=== PATIENT | female | born 1940 | race Caucasian/White ===

== ENCOUNTER 2017-01-03 01:51 | Emergency (ER) | payer MEDICARE ==
[2017-01-03] MEDS ORDERED: Azithromycin 250 MG TAB ONE (02:30)
--- NOTE | 2017-01-03 06:55 | RAD ---
CHEST 2 VIEWS: Date: 01/03/17 Comparison is made with a 07/22/15 study. The heart is upper normal in size. An AICD is in place. There are no congestive changes or pleural e ffusions. Comparison with prior chest films dating back to 2011 was made. There are little questionable patchy densities in the lungs to the right of the right heart border. On the lateral view, there is some q uestionable increased density anteriorly raising the question of some right middle lobe infiltrative findings. The changes are not definite, but given the patient's symptoms, it may be worth treating her and then repeating a chest x-ray following treatment. After that, if findings are still present, a CT might be considered to better see this area of the chest. The lungs are otherwise clear. Dorsa l kyphosis is present with degenerative change in the thoracic spine. IMPRESSION: Question of patchy right middle lobe densities. Treatment and repeat chest x-ray suggested. CODE T. POS: HOME
== END 2017-01-03 02:46 | disposition home or self-care (01) ==
LOC: BURERS 01:51
DX: B34.9 Viral infection, unspecified (principal); E03.9 Hypothyroidism, unspecified; I48.91 Unspecified atrial fibrillation; I25.10 Atherosclerotic heart disease of native coronary artery without angina pectoris; Z86.73 Personal history of transient ischemic attack (TIA), and cerebral infarction without residual deficits
CPT/HCPCS: 71020; 93005

== ENCOUNTER 2018-04-12 05:37 | Emergency (ER) | payer MEDICARE ==
--- NOTE | 2018-04-12 09:31 | CT ---
PRELIMINARY REPORT/[facility]/EMERGENCY AFTER HOURS PROCEDURE: EXAM: CT Chest Without Intravenous Contrast EXAM DATE/TIME: 04/12/2018 6:14 AM CLINICAL HISTORY: 77 years old, female; Injury or trauma; Fall; Initial encounter; Blunt trauma (contusions or hematoma s); Injury date: 04-10-18; Injury details: Fell on rt. Side ribs; Patient HX: Fell on rt. Side ribs/radha n TECHNIQUE: Axial computed tomography images of the chest without intravenous contrast. All CT scans at this [facility] use at least one of these dose optimization techniques: automated exposure control; Ma and/or kV adjustment per patient size (includes targeted exams where dose is matched to clinical indication); or iterative reconstruction. Coronal and sagittal reformatted images were created and reviewed. COMPARISON: No relevant prior studies available. FINDINGS: Lungs: Unremarkable. No mass. No consolidation. Pleural space: There is pleural thickening in the right hemithorax. This probably represents post inf lammatory change. There is minimal stranding in the right costophrenic angle. The remainder the right lung is clear. Left lung is clear. No pneumothorax. No significant effusion. Heart: There is moderately heavy calcification of the mitral valve. The heart is otherwise unremarkable. No cardiomegaly. No significant pericardial effusion. Mediastinum: There is a small hiatal hernia. Bones/joints: There is diffuse osteopenia. There is a moderate scoliotic curvature. There is moderate spondylitic changes throughout the spine. There is an old healed fracture of the right clavicle. No acute fractures. No dislocation. Soft tissues: Unremarkable. Vasculature: Unremarkable. No thoracic aortic aneurysm. Lymph nodes: Unremarkable. No enlarged lymph nodes. IMPRESSION: 1. Right-sided pleural thickening, most likely postinflammatory change. 2. Minimal stranding in the right costophrenic angle, most likely atelectasis. 3. No other acute changes in the chest. Thank you for allowing us to participate in the care of your patient. Dictated and Authenticated by: Shelton Tesfaye MD 04/12/2018 7:51 AM Central Time ([place] & [place]) FINAL REPORT CT CHEST WITHOUT CONTRAST: 04/12/2018 TECHNIQUE: A spiral CT of the chest was performed for evaluation of rib pain. Axial slices were acquired and co alexandru and sagittal reconstructions were done. The exam was done without IV contrast. FINDINGS: The patient has marked scoliosis and dorsal kyphosis of the thoracic spine. No vertebral compression s were seen. Regarding the ribs, no gross fractures were imaged. Subtle rib fractures might be miss ed in this patient, due to her osteopenia. On slice 65 of the axial images, there is an equivocal li ne near the distal end of the right 11th rib. If this correlated with point tenderness, then a minim al hairline fracture might be possible, but the finding is certainly not definite. There are areas of pleural thickening throughout much of the right hemithorax. This is more likely p ost inflammatory than acute, given its extensive coverage. Emphysematous changes are seen in the peyman gs, as well as some atelectasis and/or scarring, particularly in the right costophrenic angle. There is no pneumothorax or lobar consolidation on either side. The mediastinum shows no mass, hematoma, or other acute change. There is dense calcification of the mitral valve. No pericardial fluid is seen. Arteriosclerotic change is present in the aorta and in some of the coronary vessels. A small hiatal hernia was noted. The left adrenal gland seems thicker than the right, but a true mass is not measured. There is proba livan a small cortical cyst in the right kidney. Attention is drawn to slice 45 of the axial images. There is a rounded mass-like density in the left breast. This could be a mass, a cyst, or merely asymmetric tissue. As it seems fairly discrete, fu rther workup is in order. An elective mammogram and/or ultrasound is recommended as a followup. IMPRESSION: 1. No major traumatic findings. 2. Equivocal line at the distal end of the right 11th rib. Correlate with clinical exam. 3. Pleural thickening in the right hemithorax, more likely post inflammatory than not. No acute tra umatic findings seen in the thorax today. 4. A 1.5 cm, rounded density in the left breast. Further elective workup needed to rule out mass. 5. Small hiatal hernia. Report in substantial agreement with the preliminary reading by Jaimee. Follow up with Dr. Carty regarding breast findings and 11th rib findings @ [id number] on 04/12/2018. POS: HOME
== END 2018-04-12 08:22 | disposition home or self-care (01) ==
LOC: BURERS 05:37
DX: S20.211A Contusion of right front wall of thorax, initial encounter (principal); E03.9 Hypothyroidism, unspecified; M19.90 Unspecified osteoarthritis, unspecified site; I25.10 Atherosclerotic heart disease of native coronary artery without angina pectoris; I10 Essential (primary) hypertension; I48.91 Unspecified atrial fibrillation; M81.0 Age-related osteoporosis without current pathological fracture; Z86.73 Personal history of transient ischemic attack (TIA), and cerebral infarction without residual deficits; Z79.899 Other long term (current) drug therapy; W19.XXXA Unspecified fall, initial encounter
CPT/HCPCS: 71250

== ENCOUNTER 2018-05-06 15:54 | Emergency (ER) | payer MEDICARE ==
[2018-05-06] MEDS ORDERED: Ketorolac Tromethamine 60 MG/2 ML VIAL ONE (16:20)
--- NOTE | 2018-05-06 17:52 | CT ---
CT OF THE BRAIN WITHOUT CONTRAST: 05/06/[address] was performed following trauma. A small amount of soft tissue swelling is seen invol ving the posterior part of the skull near the vertex. There is no sign of underlying fracture. The sp henoid sinus and mastoid air cells are clear. The ventricles are normal in size for age and show no shift. No intracranial bleeding or extra-axial hematoma was seen. There is no sign of mass, edema or acute stroke. The little low density near the l eft frontal horn is likely chronic ischemic change. IMPRESSION: No acute intracranial finding. POS: HOME
--- NOTE | 2018-05-06 18:20 | RAD ---
LEFT RIBS WITH PA CHEST: 05/06/18 Comparison is made with the 01/10/17 study. There appears to have been old rib injuries on the left. The patient is very osteoporotic which marke dly decreases the sensitivity of this study. Fractures could be easily missed. There are some equivoc al areas in the cortex in the left 7th, 8th, and 9th ribs near their distal ends. If there is point t enderness here, then fracture might be possible, but the study is not definitive. There is no large p leural effusion or pneumothorax. The heart is normal in size and the mediastinum shows no widening or shift. An AICD remains in place. The lungs are clear. Slight elevation of the left hemidiaphragm is not much different than before. Scoliosis is quite prominent in the thoracolumbar spine and there may be slight compression of some vertebra, but this study is not able to show that well. There is no co ngestive change. IMPRESSION: Equivocal findings in the distal portions of the 7th, 8th, and 9th left ribs. Findings could just as easily be old as new. This should be correlated with the clinical exam. Code T POS: HOME
== END 2018-05-06 17:47 | disposition home or self-care (01) ==
LOC: BURERS 15:54
DX: S09.90XA Unspecified injury of head, initial encounter (principal); S20.212A Contusion of left front wall of thorax, initial encounter; E03.9 Hypothyroidism, unspecified; I10 Essential (primary) hypertension; I25.10 Atherosclerotic heart disease of native coronary artery without angina pectoris; I48.91 Unspecified atrial fibrillation; M81.0 Age-related osteoporosis without current pathological fracture; M41.9 Scoliosis, unspecified; M19.90 Unspecified osteoarthritis, unspecified site; M12.9 Arthropathy, unspecified; Z87.891 Personal history of nicotine dependence; Z79.899 Other long term (current) drug therapy; W19.XXXA Unspecified fall, initial encounter
CPT/HCPCS: 70450; 96372; J1885

== ENCOUNTER 2018-09-01 15:19 | Emergency (ER) | payer MEDICARE, SELFPAY ==
[2018-09-01 16:22] LABS: Lactic Acid 2.5 mmol/L (0.5-2.2)
[2018-09-01 16:29] LABS: ALT (SGPT) 14 U/L (8-55); AST (SGOT) 21 U/L (5-34); Albumin 3.9 g/dL (3.4-4.8); Alkaline Phosphatase 54 U/L (40-150); Anion Gap 15 mmol/L (10-20); BUN (Urea Nitrogen) 21 mg/dL (9.8-20.1); Band 1 % (5-11); Bilirubin, Total 1.1 mg/dL (0.2-1.2); Calc. Creatinine Clearance 0 mL/min (70-130); Calcium 9.4 mg/dL (7.8-10.44); Carbon Dioxide 23 mmol/L (23-31); Chloride 104 mmol/L (98-107); Estimated GFR-MDRD 62; Globulin 2.8 g/dL (2.4-3.5); Glucose 138 mg/dL (83-110); Hemoglobin 14.5 g/dL (12.0-16.0); Lymphocytes 18 % (21-51); MDiff Complete? YES; Macrocytosis SLIGHT = 6-15 cells (100X) (0-5/hpf); Mean Corpuscular HGB CONC 34.9 g/dL (32.0-36.0); Mean Corpuscular Hemoglobin 31.9 pg (27.0-31.0); Mean Corpuscular Volume 91.4 fL (78.0-98.0); Mean Platelet Volume 9.3 fL (7.4-10.4); Monocytes 3 % (0-10); Neutrophil 78 % (42-75); Platelet Count 332 thou/uL (130-400); Potassium 4.4 mmol/L (3.5-5.1); Protein, Total 6.7 g/dL (6.0-8.3); RBC Distribution Width 16.5 % (11.5-14.5); Red Blood Cell (RBC) Count 4.55 mill/uL (4.20-5.40); Sodium 138 mmol/L (136-145); White Blood Cell (WBC) Count 5.8 thou/uL (4.8-10.8)
[2018-09-01 16:33] LABS: CKMB 2.5 ng/mL (0-6.6)
[2018-09-01 18:10] LABS: Lactic Acid 2.1 mmol/L (0.5-2.2)
[2018-09-01 18:21] LABS: Troponin I 0.032 ng/mL (< 0.028)
--- NOTE | 2018-09-01 22:01 | RAD ---
PORTABLE CHEST: 09/01/18 An AP portable film at 1535 is compared with a 07/04/18 study. The heart is normal in size. Severe scoliosis is noted as usual. No lobar consolidation, effusion, or pulmonary mass was seen. There does not appear to be any pulmonary edema. IMPRESSION: No acute thoracic finding. POS: HOME
== END 2018-09-01 18:40 | disposition home or self-care (01) ==
LOC: BURERS 15:19
DX: R06.02 Shortness of breath (principal); I10 Essential (primary) hypertension; I25.10 Atherosclerotic heart disease of native coronary artery without angina pectoris; Z86.73 Personal history of transient ischemic attack (TIA), and cerebral infarction without residual deficits; E03.9 Hypothyroidism, unspecified; I48.91 Unspecified atrial fibrillation; M81.0 Age-related osteoporosis without current pathological fracture; Z87.891 Personal history of nicotine dependence; Z79.899 Other long term (current) drug therapy; Z85.3 Personal history of malignant neoplasm of breast
CPT/HCPCS: 71045; 80053; 82553; 83605; 83880; 84484; 85025; 85379; 87040; 93005; 96360